=== PATIENT | male | born 1955 | race Caucasian/White ===

== ENCOUNTER → 2019-07-15 | Outpatient (CLI) | payer MEDICARE ==
--- NOTE | 2019-07-21 09:20 | REP ---
PET/CT: History: Lung nodules seen on chest CT. Multiple stable lung nodules. Recent CAT scan showed an enlarging lesion in the right middle lobe for which PET/CT was recommended. Comparisons: Comparison CT study has been retrieved from [facility] dated May 19, 2019. TECHNIQUE: 56 minutes following the intravenous injection of a 9.78 mCi dose of F-18 FDG, three-dimensional PET scintigraphy is acquired from the skull base to the proximal thighs. Triplanar noncontrast CT scanning is acquired through the same anatomic range for attenuation correction, and image registration with scan parameters optimized to minimize radiation exposure to the patient. PET scintigraphy and CT datasets were fused and displayed on a workstation with multiplanar and projection display capability. PET/CT Findings: Head and neck soft tissues are unremarkable scintigraphically. In the chest, there is no abnormal hypermetabolic pulmonary parenchymal hilar or mediastinal uptake. Maximum standard uptake value in the right middle lobe nodule surrounded by some ground-glass opacity is only 1.46. This is not hypermetabolic. The other pulmonary nodules show node discernible FDG accumulation. In the abdomen and pelvis there is normal hepatic, splenic, gastrointestinal and genitourinary FDG accumulation. No abnormal soft tissue uptake in the abdomen and pelvis. The patient's skeletal system is markedly abnormal. There are innumerable skeletal fractures. Multiple wedge compression fracture deformities are seen in the thoracic and lumbar spine. There are numerous healing rib fractures. There are bilateral pelvic fractures in various stages of healing. One or two of the rib fractures show mildly hypermetabolic uptake with maximum standard uptake value 3.40. Only one of the wedge compression deformities in the thoracic spine is hypermetabolic. Maximum standard uptake value here is 3.45. Sagittal recon images of the PET/CT and the chest CT study show a radiolucent areas in several of the collapsed thoracic vertebral bodies. The pattern is suggestive of multiple myeloma versus other cause of severe osteoporosis. Impression: The right middle lobe nodule and associated ground-glass opacity show visible but not hypermetabolic uptake. Malignancy cannot be completely excluded. Incidental finding of markedly abnormal skeletal system with innumerable fractures as discussed above. Question multiple myeloma or other cause of severe osteopenia/osteomalacia. Electronically Signed by Hermes Turcios MD 07/21/2019 07:55 P
== END ==
LOC: M PLARAD 10:52
PROVIDERS: ATTEND Neuromusculoskeletal Medicine & OMM
DX: R93.7 Abnormal findings on diagnostic imaging of other parts of musculoskeletal system (principal); R91.8 Other nonspecific abnormal finding of lung field
CPT/HCPCS: 78815; A9552

== ENCOUNTER 2023-02-26 17:25 | Emergency (ER) | payer MEDICARE ==
[~2023-02-26] VITALS: Ht 167.6 cm; Wt 115.1 kg
[2023-02-26 18:50] VITALS: BP 107/56; TEMP 96.9; O2SAT 96
== END 2023-02-26 19:05 | disposition home or self-care (01) ==
LOC: EDBD 17:25 → M ED 17:25
DX: R22.32 Localized swelling, mass and lump, left upper limb (principal); I10 Essential (primary) hypertension; I48.91 Unspecified atrial fibrillation; E11.9 Type 2 diabetes mellitus without complications; J44.9 Chronic obstructive pulmonary disease, unspecified; Z88.6 Allergy status to analgesic agent; Z88.8 Allergy status to other drugs, medicaments and biological substances

== ENCOUNTER → 2023-02-26 | Outpatient (REF) | payer MEDICAID, MEDICARE ==
[2023-02-26 10:58] LABS: MEAN CORPUSCULAR HEMOGLOBIN 28.2 pg (27.0-33.0); MEAN CORPUSCULAR HGB CONC 31.1 g/dl (32.0-36.5); MEAN CORPUSCULAR VOLUME 90.7 fl (80.0-96.0); PLATELET COUNT, AUTOMATED 243 10^3/uL (150-450); RED BLOOD COUNT 4.96 10^6/uL (4.30-6.10); WHITE BLOOD COUNT 11.5 10^3/uL (4.0-10.0)
[2023-02-26 11:24] LABS: ALBUMIN 3.3 G/DL (3.2-5.2); ALKALINE PHOSPHATASE 105 U/L (46-116); ALT/SGPT 33 U/L (7.0-40); AST/SGOT 18 U/L (<34); BILIRUBIN,TOTAL 0.6 MG/DL (0.3-1.2); BLOOD UREA NITROGEN 27 MG/DL (9-23); CALCIUM LEVEL 9.7 MG/DL (8.3-10.6); CARBON DIOXIDE LEVEL 35 MMOL/L (20-31); CHLORIDE LEVEL 93 MMOL/L (98-107); CREATININE FOR GFR 0.67 MG/DL (0.70-1.30); GLOMERULAR FILTRATION RATE > 60.0 (>49); GLUCOSE, FASTING 220 MG/DL (74-106); POTASSIUM SERUM 4.5 MMOL/L (3.5-5.1); SODIUM LEVEL 134 MMOL/L (136-145); TOTAL PROTEIN 6.7 G/DL (5.7-8.2)
== END ==
LOC: SKLAB4 10:18
PROVIDERS: ATTEND Internal Medicine
DX: R22.32 Localized swelling, mass and lump, left upper limb (principal)

== ENCOUNTER → 2023-04-04 | Outpatient (REF) | payer MEDICARE ==
[2023-04-04 19:03] LABS: BASO % 0.5 % (0.0-1.0); EOS # 0.3 10^3/uL (0.0-0.5); EOS % 3.5 % (0.0-3.0); HEMATOCRIT 45.3 % (42.0-52.0); HEMOGLOBIN 13.8 g/dl (13.5-17.5); LYMPH # 1.3 10^3/uL (1.5-5.0); LYMPH % 14.2 % (24.0-44.0); MEAN CORPUSCULAR HEMOGLOBIN 28.9 pg (27.0-33.0); MEAN CORPUSCULAR HGB CONC 30.5 g/dl (32.0-36.5); MEAN CORPUSCULAR VOLUME 94.8 fl (80.0-96.0); MONO % 11.3 % (2.0-8.0); NEUTROPHILS # 6.2 10^3/uL (1.5-8.5); NEUTROPHILS % 70.2 % (36.0-66.0); PLATELET COUNT, AUTOMATED 193 10^3/uL (150-450); RED BLOOD COUNT 4.78 10^6/uL (4.30-6.10); WHITE BLOOD COUNT 8.8 10^3/uL (4.0-10.0)
[2023-04-04 19:24] LABS: ALBUMIN 3.2 G/DL (3.2-5.2); ALKALINE PHOSPHATASE 97 U/L (46-116); ALT/SGPT 14 U/L (7.0-40); AST/SGOT < 8 U/L (<34); BILIRUBIN,TOTAL 0.4 MG/DL (0.3-1.2); BLOOD UREA NITROGEN 41 MG/DL (9-23); CALCIUM LEVEL 10.2 MG/DL (8.3-10.6); CARBON DIOXIDE LEVEL 34 MMOL/L (20-31); CHLORIDE LEVEL 96 MMOL/L (98-107); CREATININE FOR GFR 0.82 MG/DL (0.70-1.30); GLOMERULAR FILTRATION RATE > 60.0 (>49); GLUCOSE, FASTING 316 MG/DL (74-106); POTASSIUM SERUM 4.9 MMOL/L (3.5-5.1); SODIUM LEVEL 136 MMOL/L (136-145); TOTAL PROTEIN 6.6 G/DL (5.7-8.2)
== END ==
LOC: SKLAB7 16:53
PROVIDERS: ATTEND Internal Medicine
DX: R91.8 Other nonspecific abnormal finding of lung field (principal); R00.0 Tachycardia, unspecified; I21.A9 Other myocardial infarction type; R06.02 Shortness of breath

== ENCOUNTER 2023-04-15 09:05 | Inpatient (IN) | payer MEDICARE ==
[~2023-04-15] VITALS: Ht 172.7 cm; Wt 114.1 kg
[2023-04-15] VITALS (16 sets, daily range): BP systolic 69–178; BP diastolic 33–109; TEMP 97.3–97.8; O2SAT 90–99
[2023-04-15] MEDS ORDERED: methylPREDNISolone 125MG 2ML VIAL IV ONE (09:25)
[2023-04-15] MEDS ORDERED: ALBUTEROL SULFATE 2.5MG/0.5ML INH NEB SOLN INH ONE (09:25)
[2023-04-15] MEDS ORDERED: IPRATROPIUM 0.5MG/ALBUTEROL 2.5MG INH SOL UD 3ML (DUONEB) NEB ONE (09:25)
[2023-04-15] MEDS ORDERED: NS 500 ML IV ONE ×2 (09:30→09:35)
[2023-04-15] MEDS ORDERED: cefTRIAXone SOD 2 GM in D5W MINI-BAG PLUS 50 ML IV ONE (09:30)
[2023-04-15] MEDS ORDERED: AZITHROMYCIN INJ 500 MG, VIAL MATE ADAPTER 1 EACH in D5W 250 ML IV ONE (09:30)
[2023-04-15 09:31] LABS: ABG BASE EXCESS -1.8 (-2.0-2.0); ABG HCO3 29.4 MMOL/L (22.0-26.0); ABG PARTIAL PRESSURE O2 82.4 mmHg (75.0-100.0); ABG STANDARD HCO3 22.9 MMOL/L. (22.0-26.0); ABG TOTAL CO2 31.9 MMOL/L (23.0-31.0)
[2023-04-15 09:32] LABS: ABG PARTIAL PRESSURE CO2 81.6 mmHg (35.0-45.0); ABG pH (ARTERIAL) 7.174 UNITS (7.350-7.450)
[2023-04-15 09:47] LABS: BASO % 0.3 % (0.0-1.0); EOS % 0.3 % (0.0-3.0); HEMATOCRIT 53.7 % (42.0-52.0); HEMOGLOBIN 16.2 g/dl (13.5-17.5); LYMPH # 0.9 10^3/uL (1.5-5.0); LYMPH % 6.4 % (24.0-44.0); MEAN CORPUSCULAR HEMOGLOBIN 28.7 pg (27.0-33.0); MEAN CORPUSCULAR HGB CONC 30.2 g/dl (32.0-36.5); MONO # 0.8 10^3/uL (0.0-0.8); MONO % 5.6 % (2.0-8.0); NEUTROPHILS # 12.2 10^3/uL (1.5-8.5); NEUTROPHILS % 86.8 % (36.0-66.0); PLATELET COUNT, AUTOMATED 284 10^3/uL (150-450); RED BLOOD COUNT 5.65 10^6/uL (4.30-6.10)
[2023-04-15 10:00] LABS: CK-MB VALUE MASS 1.2 NG/ML (<3.6)
[2023-04-15 10:01] LABS: INR 1.61; PROTHROMBIN TIME 18.6 SECONDS (12.5-14.5)
[2023-04-15 10:02] LABS: PARTIAL THROMBOPLASTIN TIME 28.5 SECONDS (24.8-34.2)
[2023-04-15 10:03] LABS: MB/CK RELATIVE INDEX 3.63 (< OR =4)
[2023-04-15 10:04] LABS: FREE T4 0.97 NG/DL (0.89-1.76); THYROID STIMULATING HORMONE 3.127 uIU/ML (0.55-4.78)
[2023-04-15 10:09] LABS: PROCALCITONIN 0.45 ng/ml
[2023-04-15 10:13] LABS: RSV AMPLIFICATION NEGATIVE (NEGATIVE)
[2023-04-15] MEDS ORDERED: DEXTROSE 50% 50ML SYRINGE IV ONE ×2 (10:15→13:20)
[2023-04-15] MEDS ORDERED: CALCIUM GLUCONATE 1,000MG/10ML VIAL (100MG/ML) IV ONE (10:15)
[2023-04-15] MEDS ORDERED: SODIUM BICARBONATE 8.4% INJ 50ML SYRINGE IV ONE (10:15)
[2023-04-15] MEDS ORDERED: HumuLIN R (REGULAR) INSULIN (NovoLIN R) **100U/ML** PER UNIT IV ONE ×2 (10:15→13:20)
[2023-04-15 10:16] LABS: ALBUMIN 3.5 G/DL (3.2-5.2); BILIRUBIN,DIRECT 0.3 MG/DL (<0.4); BILIRUBIN,TOTAL 0.6 MG/DL (0.3-1.2); CALCIUM LEVEL 10.2 MG/DL (8.3-10.6); CREATININE FOR GFR 1.33 MG/DL (0.70-1.30); GLOMERULAR FILTRATION RATE 57.3 (>49); MAGNESIUM LEVEL 2.3 MG/DL (1.8-2.4); POTASSIUM SERUM 7.2 MMOL/L (3.5-5.1); TOTAL PROTEIN 7.4 G/DL (5.7-8.2)
[2023-04-15] MEDS ORDERED: NS IV ONE (10:35)
[2023-04-15 11:09] LABS: ABG BASE EXCESS -1.2 (-2.0-2.0); ABG HCO3 29.8 MMOL/L (22.0-26.0); ABG O2 SATURATION 94.7 % (95.0-99.0); ABG PARTIAL PRESSURE CO2 81.2 mmHg (35.0-45.0); ABG STANDARD HCO3 23.4 MMOL/L. (22.0-26.0); ABG TOTAL CO2 32.3 MMOL/L (23.0-31.0); ABG pH (ARTERIAL) 7.182 UNITS (7.350-7.450)
[2023-04-15] MEDS ORDERED: MED REC IN PROGRESS XX SCH (11:20)
[2023-04-15 11:24] LABS: CK-MB VALUE MASS 1.4 NG/ML (<3.6)
[2023-04-15 11:32] LABS: MB/CK RELATIVE INDEX 4.11 (< OR =4)
[2023-04-15] MEDS ORDERED: PATIROMER SORBITEX CALCIUM 8.4 GM POWDER PACKET (VELTASSA) PO ONE ×2 (11:50→17:00)
[2023-04-15] MEDS ORDERED: LIDO1ADH20 TOP (11:52)
[2023-04-15] MEDS ORDERED: LIDO1PAD TOP (11:52)
[2023-04-15] MEDS ORDERED: LANTINJ4 SC (11:52)
[2023-04-15] MEDS ORDERED: ALBU6.7H6 INH (11:52)
[2023-04-15] MEDS ORDERED: NITR0.4S14 SL (11:52)
[2023-04-15] MEDS ORDERED: INDA25TAB PO (11:52)
[2023-04-15] MEDS ORDERED: ADV100INH INH (11:52)
[2023-04-15] MEDS ORDERED: GLIP10TA PO (11:52)
[2023-04-15] MEDS ORDERED: LISI40TA4 PO (11:52)
[2023-04-15] MEDS ORDERED: MILKSUS7 PO (11:52)
[2023-04-15] MEDS ORDERED: MAGN400T2 PO (11:52)
[2023-04-15] MEDS ORDERED: ATOR40TA75 PO (12:42)
[2023-04-15 12:51] LABS: CREATININE FOR GFR 1.32 MG/DL (0.70-1.30); GLOMERULAR FILTRATION RATE 57.8 (>49); POTASSIUM SERUM 7.2 MMOL/L (3.5-5.1)
[2023-04-15 12:52] LABS: ABG BASE EXCESS 0.6 (-2.0-2.0); ABG HCO3 29.3 MMOL/L (22.0-26.0); ABG O2 SATURATION 89.1 % (95.0-99.0); ABG PARTIAL PRESSURE CO2 64.5 mmHg (35.0-45.0); ABG PARTIAL PRESSURE O2 59.8 mmHg (75.0-100.0); ABG STANDARD HCO3 24.8 MMOL/L. (22.0-26.0); ABG TOTAL CO2 31.3 MMOL/L (23.0-31.0); ABG pH (ARTERIAL) 7.275 UNITS (7.350-7.450)
[2023-04-15] MEDS ORDERED: GUAI100S51 PO (12:59)
[2023-04-15] MEDS ORDERED: APAP325T4 PO (12:59)
[2023-04-15] MEDS ORDERED: FLEEENE12 PR (12:59)
[2023-04-15] MEDS ORDERED: HYDR-3713 PO (12:59)
[2023-04-15] MEDS ORDERED: VITA100066 PO (12:59)
[2023-04-15] MEDS ORDERED: BISA10SU4 PR (12:59)
[2023-04-15] MEDS ORDERED: IPRA0.00 INH (12:59)
[2023-04-15] MEDS ORDERED: XARE20TA PO (12:59)
[2023-04-15] MEDS ORDERED: METF-839 PO (12:59)
[2023-04-15] MEDS ORDERED: MM S100C PO (12:59)
[2023-04-15] MEDS ORDERED: METO50TA7 PO (12:59)
[2023-04-15] MEDS ORDERED: SM N0.65 (13:03)
[2023-04-15] MEDS ORDERED: HOME MED LIST COMPLETE! XX SCH (13:15)
[2023-04-15] MEDS ORDERED: BISACODYL 10MG SUPP PR PRN (14:45)
[2023-04-15] MEDS ORDERED: SODIUM CHLORIDE NASAL 0.65% SPRAY BTL (OCEAN) PRN (14:45)
[2023-04-15] MEDS ORDERED: NITROGLYCERIN 0.4MG SUBL TABLET SL PRN (14:45)
[2023-04-15] MEDS ORDERED: IPRATROPIUM 0.5MG/ALBUTEROL 2.5MG INH SOL UD 3ML (DUONEB) INH PRN (14:45)
[2023-04-15] MEDS ORDERED: ALBUTEROL 90 MCG/ACT 8GM HFA INHALER INH PRN (14:45)
[2023-04-15 15:20] LABS: VENOUS BASE EXCESS 1.1 (-2.0-2.0); VENOUS HCO3 27.6 MMOL/L (23.0-27.0); VENOUS O2 SATURATION 99.8 % (60.0-80.0); VENOUS PARTIAL PRESSURE CO2 50.9 mmHg (38.0-50.0); VENOUS PARTIAL PRESSURE O2 242.6 mmHg (30.0-50.0); VENOUS PH 7.352 UNITS (7.330-7.430); VENOUS STANDARD HCO3 25.5 MMOL/L; VENOUS TOTAL CO2 29.2 MMOL/L (24.0-28.0)
[2023-04-15] MEDS: LIDOCAINE 5% (LIDODERM) PATCH TOP SCH (16:00)
[2023-04-15 16:06] LABS: BLOOD UREA NITROGEN 87 MG/DL (9-23); CALCIUM LEVEL 10.1 MG/DL (8.3-10.6); CARBON DIOXIDE LEVEL 30 MMOL/L (20-31); CHLORIDE LEVEL 98 MMOL/L (98-107); CREATININE FOR GFR 1.07 MG/DL (0.70-1.30); GLOMERULAR FILTRATION RATE > 60.0 (>49); GLUCOSE, FASTING 363 MG/DL (74-106); POTASSIUM SERUM 6.1 MMOL/L (3.5-5.1); SODIUM LEVEL 133 MMOL/L (136-145)
[2023-04-15] MEDS: HEPARIN SOD (PORCINE) 5000UNITS/ML 1ML VIAL/SYRINGE SC SCH ×2 (17:24→21:05)
[2023-04-15] MEDS ORDERED: LR 1,000 ML IV ONE (17:30)
[2023-04-15] MEDS ORDERED: NS 1,000 ML IV ONE (17:40)
[2023-04-15] MEDS ORDERED: SODIUM BICARBONATE 8.4% INJ 50ML SYRINGE IV STA ×2 (17:54→18:58)
[2023-04-15] MEDS: RIVAROXABAN 20MG TAB (XARELTO) PO SCH (18:00)
[2023-04-15] MEDS: NOREPINEPHRINE 4MG IN D5 250ML 4 MG in IV 1 EA IV SCH ×2 (18:45)
[2023-04-15] MEDS: ADVAIR HFA 45/21MCG INHALER INH SCH (20:06)
[2023-04-15] MEDS: ATORVASTATIN 20 MG TAB PO SCH (20:34)
[2023-04-15] MEDS: DOCUSATE SODIUM 100MG CAPSULE PO SCH (20:34)
[2023-04-15] MEDS: METOPROLOL TART 50 MG TAB PO SCH (20:34)
[2023-04-15] MEDS: INDAPAMIDE 1.25MG TABLET PO SCH (20:35)
[2023-04-15] MEDS: MAGNESIUM OXIDE 400MG TAB (MAG-OX) PO SCH (20:35)
[2023-04-15 20:59] LABS: BLOOD UREA NITROGEN 79 MG/DL (9-23); CARBON DIOXIDE LEVEL 32 MMOL/L (20-31); CHLORIDE LEVEL 101 MMOL/L (98-107); CREATININE FOR GFR 1.01 MG/DL (0.70-1.30); GLOMERULAR FILTRATION RATE > 60.0 (>49); GLUCOSE, FASTING 309 MG/DL (74-106); POTASSIUM SERUM 6.1 MMOL/L (3.5-5.1); SODIUM LEVEL 138 MMOL/L (136-145)
[2023-04-15] MEDS ORDERED: LEVEMIR (INSULIN DETEMIR) 1 UNITS/0.01ML SC SCH (21:00)
[2023-04-15] MEDS: METOPROLOL 5 MG/5 ML VIAL IV SCH (21:04)
[2023-04-15] MEDS ORDERED: FUROSEMIDE 20MG/2ML VIAL IV ONE (21:15)
[2023-04-16] VITALS (18 sets, daily range): BP systolic 84–121; BP diastolic 53–78; TEMP 97.6–98.7; O2SAT 90–99
[2023-04-16] MEDS: NOREPINEPHRINE 4MG IN D5 250ML 4 MG in IV 1 EA IV SCH ×4 (02:14→07:50)
[2023-04-16] MEDS: METOPROLOL 5 MG/5 ML VIAL IV SCH (03:00)
[2023-04-16] MEDS: HEPARIN SOD (PORCINE) 5000UNITS/ML 1ML VIAL/SYRINGE SC SCH (05:18)
[2023-04-16 06:59] LABS: BASO % 0.1 % (0.0-1.0); HEMATOCRIT 45.8 % (42.0-52.0); HEMOGLOBIN 14.3 g/dl (13.5-17.5); LYMPH % 8.9 % (24.0-44.0); MEAN CORPUSCULAR HEMOGLOBIN 28.7 pg (27.0-33.0); MEAN CORPUSCULAR HGB CONC 31.2 g/dl (32.0-36.5); MONO # 1.3 10^3/uL (0.0-0.8); MONO % 11.2 % (2.0-8.0); NEUTROPHILS % 79.4 % (36.0-66.0); PLATELET COUNT, AUTOMATED 223 10^3/uL (150-450); RED BLOOD COUNT 4.98 10^6/uL (4.30-6.10); WHITE BLOOD COUNT 11.3 10^3/uL (4.0-10.0)
[2023-04-16 07:20] LABS: BLOOD UREA NITROGEN 70 MG/DL (9-23); CALCIUM LEVEL 10.2 MG/DL (8.3-10.6); CARBON DIOXIDE LEVEL 35 MMOL/L (20-31); CHLORIDE LEVEL 101 MMOL/L (98-107); CREATININE FOR GFR 0.88 MG/DL (0.70-1.30); GLOMERULAR FILTRATION RATE > 60.0 (>49); GLUCOSE, FASTING 257 MG/DL (74-106); POTASSIUM SERUM 5.6 MMOL/L (3.5-5.1); SODIUM LEVEL 140 MMOL/L (136-145)
[2023-04-16] MEDS: ADVAIR HFA 45/21MCG INHALER INH SCH ×2 (07:25→19:19)
[2023-04-16] MEDS ORDERED: DEXTROSE 50% 50ML SYRINGE IV PRN (08:45)
[2023-04-16] MEDS ORDERED: GLUCOSE 4GM CHEW TABLET PO PRN (08:45)
[2023-04-16] MEDS ORDERED: GLUCAGON INJ 1MG VIAL SC PRN (08:45)
[2023-04-16] MEDS ORDERED: FUROSEMIDE 20MG/2ML VIAL IV ONE (09:00)
[2023-04-16] MEDS: INDAPAMIDE 1.25MG TABLET PO SCH (09:00)
[2023-04-16] MEDS: LIDOCAINE 5% (LIDODERM) PATCH TOP SCH (09:00)
[2023-04-16] MEDS: DOCUSATE SODIUM 100MG CAPSULE PO SCH ×2 (09:13→20:50)
[2023-04-16] MEDS: MAGNESIUM OXIDE 400MG TAB (MAG-OX) PO SCH ×2 (09:14→20:50)
[2023-04-16] MEDS: predniSONE 20 MG TAB PO SCH (09:14)
[2023-04-16] MEDS: AZITHROMYCIN 250MG TABLET PO SCH (09:14)
[2023-04-16] MEDS: METOPROLOL TART 50 MG TAB PO SCH (10:21)
[2023-04-16] MEDS ORDERED: PATIROMER SORBITEX CALCIUM 8.4 GM POWDER PACKET (VELTASSA) PO SCH (12:00)
[2023-04-16] MEDS: INSULIN LISPRO (NovoLOG) PER UNIT SC SCH ×3 (12:17→20:51)
[2023-04-16 14:28] LABS: BLOOD UREA NITROGEN 65 MG/DL (9-23); CALCIUM LEVEL 9.9 MG/DL (8.3-10.6); CARBON DIOXIDE LEVEL 34 MMOL/L (20-31); CHLORIDE LEVEL 97 MMOL/L (98-107); GLOMERULAR FILTRATION RATE > 60.0 (>49); GLUCOSE, FASTING 427 MG/DL (74-106); MAGNESIUM LEVEL 1.6 MG/DL (1.8-2.4); SODIUM LEVEL 136 MMOL/L (136-145)
[2023-04-16] MEDS ORDERED: INSULIN LISPRO (NovoLOG) PER UNIT SC ONE (14:45)
[2023-04-16] MEDS: MAG SULF 1GM/100ML (MAG RUN) 1 GM in IV 1 EA IV SCH ×2 (15:35→16:46)
[2023-04-16] MEDS: RIVAROXABAN 20MG TAB (XARELTO) PO SCH (18:02)
[2023-04-16] MEDS: METOPROLOL TART 25 MG TABLET PO SCH (18:07)
[2023-04-16] MEDS: LEVALBUTEROL 1.25MG 0.5ML CONCENTRATE NEB INH SCH (19:19)
[2023-04-16] MEDS: ATORVASTATIN 20 MG TAB PO SCH (20:51)
[2023-04-16] MEDS: LEVEMIR (INSULIN DETEMIR) 1 UNITS/0.01ML SC SCH (20:51)
[2023-04-17] VITALS: BP 107/64; TEMP 96.8; O2SAT 86
[2023-04-17] MEDS: METOPROLOL TART 25 MG TABLET PO SCH ×5 (00:06→23:56)
[2023-04-17] MEDS: LEVALBUTEROL 1.25MG 0.5ML CONCENTRATE NEB INH SCH ×4 (02:41→19:59)
[2023-04-17 04:00] VITALS: BP 101/63; TEMP 96.7; O2SAT 87
[2023-04-17 04:54] LABS: BASO % 0.3 % (0.0-1.0); EOS % 0.4 % (0.0-3.0); HEMATOCRIT 43.9 % (42.0-52.0); HEMOGLOBIN 13.5 g/dl (13.5-17.5); LYMPH # 1.6 10^3/uL (1.5-5.0); LYMPH % 15.8 % (24.0-44.0); MEAN CORPUSCULAR HEMOGLOBIN 28.7 pg (27.0-33.0); MEAN CORPUSCULAR HGB CONC 30.8 g/dl (32.0-36.5); MEAN CORPUSCULAR VOLUME 93.4 fl (80.0-96.0); MONO # 1.5 10^3/uL (0.0-0.8); MONO % 14.7 % (2.0-8.0); NEUTROPHILS % 68.5 % (36.0-66.0); PLATELET COUNT, AUTOMATED 186 10^3/uL (150-450); WHITE BLOOD COUNT 10.2 10^3/uL (4.0-10.0)
[2023-04-17 05:17] LABS: BLOOD UREA NITROGEN 48 MG/DL (9-23); CALCIUM LEVEL 9.6 MG/DL (8.3-10.6); CARBON DIOXIDE LEVEL 38 MMOL/L (20-31); CHLORIDE LEVEL 96 MMOL/L (98-107); CREATININE FOR GFR 0.73 MG/DL (0.70-1.30); GLOMERULAR FILTRATION RATE > 60.0 (>49); GLUCOSE, FASTING 181 MG/DL (74-106); MAGNESIUM LEVEL 1.8 MG/DL (1.8-2.4); POTASSIUM SERUM 4.7 MMOL/L (3.5-5.1); SODIUM LEVEL 135 MMOL/L (136-145)
[2023-04-17 07:14] VITALS: BP 111/67; TEMP 96.8; O2SAT 91
[2023-04-17] MEDS: TIOTROPIUM INHALER/CAPSULE (SPIRIVA) INH SCH (07:22)
[2023-04-17] MEDS: ADVAIR HFA 45/21MCG INHALER INH SCH ×2 (07:22→19:59)
[2023-04-17] MEDS: INSULIN LISPRO (NovoLOG) PER UNIT SC SCH ×4 (07:30→20:51)
[2023-04-17] MEDS: AZITHROMYCIN 250MG TABLET PO SCH (08:28)
[2023-04-17] MEDS: predniSONE 20 MG TAB PO SCH (08:28)
[2023-04-17] MEDS: DOCUSATE SODIUM 100MG CAPSULE PO SCH ×2 (08:29→20:51)
[2023-04-17] MEDS: LEVEMIR (INSULIN DETEMIR) 1 UNITS/0.01ML SC SCH ×2 (08:29→20:49)
[2023-04-17] MEDS: MAGNESIUM OXIDE 400MG TAB (MAG-OX) PO SCH ×2 (08:29→20:51)
[2023-04-17] MEDS: LIDOCAINE 5% (LIDODERM) PATCH TOP SCH ×2 (08:30→20:52)
[2023-04-17] MEDS ORDERED: PATIROMER SORBITEX CALCIUM 8.4 GM POWDER PACKET (VELTASSA) PO ONE (09:00)
[2023-04-17] MEDS: FUROSEMIDE 20 MG TAB PO SCH (11:24)
[2023-04-17] MEDS ORDERED: HEPARIN SOD (PORCINE) 5000UNITS/ML 1ML VIAL/SYRINGE IV PRN (13:25)
[2023-04-17] MEDS ORDERED: MIRALAX *UNIT DOSE* 17GM PACKET PO PRN (14:05)
[2023-04-17] MEDS: HEPARIN DRIP 25,000 UNITS in IV 1 EA IV SCH (18:00)
[2023-04-17 20:00] VITALS: BP 123/62; TEMP 98.1; O2SAT 94
[2023-04-17 20:03] VITALS: O2SAT 96
[2023-04-17] MEDS: ATORVASTATIN 20 MG TAB PO SCH (20:51)
[2023-04-17 23:49] VITALS: BP 133/70; TEMP 97.9; O2SAT 91
[2023-04-18] VITALS (17 sets, daily range): BP systolic 102–145; BP diastolic 52–76; TEMP 96.8–97.7; O2SAT 85–97
[2023-04-18] MEDS: LEVALBUTEROL 1.25MG 0.5ML CONCENTRATE NEB INH SCH ×4 (01:24→19:03)
[2023-04-18] MEDS: METOPROLOL TART 25 MG TABLET PO SCH ×4 (05:46→23:03)
[2023-04-18 06:08] LABS: BASO % 0.3 % (0.0-1.0); EOS # 0.1 10^3/uL (0.0-0.5); EOS % 0.9 % (0.0-3.0); HEMATOCRIT 45.6 % (42.0-52.0); LYMPH # 1.4 10^3/uL (1.5-5.0); LYMPH % 18.2 % (24.0-44.0); MEAN CORPUSCULAR HEMOGLOBIN 28.5 pg (27.0-33.0); MEAN CORPUSCULAR HGB CONC 30.7 g/dl (32.0-36.5); MEAN CORPUSCULAR VOLUME 92.7 fl (80.0-96.0); NEUTROPHILS # 5.3 10^3/uL (1.5-8.5); NEUTROPHILS % 67.3 % (36.0-66.0); PLATELET COUNT, AUTOMATED 177 10^3/uL (150-450); RED BLOOD COUNT 4.92 10^6/uL (4.30-6.10); WHITE BLOOD COUNT 7.8 10^3/uL (4.0-10.0)
[2023-04-18 06:46] LABS: BLOOD UREA NITROGEN 30 MG/DL (9-23); CALCIUM LEVEL 10.3 MG/DL (8.3-10.6); CARBON DIOXIDE LEVEL 39 MMOL/L (20-31); CHLORIDE LEVEL 91 MMOL/L (98-107); CREATININE FOR GFR 0.62 MG/DL (0.70-1.30); GLOMERULAR FILTRATION RATE > 60.0 (>49); GLUCOSE, FASTING 188 MG/DL (74-106); MAGNESIUM LEVEL 1.4 MG/DL (1.8-2.4); POTASSIUM SERUM 4.2 MMOL/L (3.5-5.1); SODIUM LEVEL 135 MMOL/L (136-145)
[2023-04-18] MEDS: INSULIN LISPRO (NovoLOG) PER UNIT SC SCH ×4 (07:30→21:55)
[2023-04-18] MEDS: MAG SULF 1GM/100ML (MAG RUN) 1 GM in IV 1 EA IV SCH ×3 (07:32→10:08)
[2023-04-18] MEDS: TIOTROPIUM INHALER/CAPSULE (SPIRIVA) INH SCH ×2 (08:00→08:52)
[2023-04-18] MEDS: ADVAIR HFA 45/21MCG INHALER INH SCH ×2 (08:52→19:03)
[2023-04-18] MEDS: LEVEMIR (INSULIN DETEMIR) 1 UNITS/0.01ML SC SCH (09:14)
[2023-04-18] MEDS: FUROSEMIDE 20 MG TAB PO SCH (09:15)
[2023-04-18] MEDS: predniSONE 20 MG TAB PO SCH (09:15)
[2023-04-18] MEDS: MAGNESIUM OXIDE 400MG TAB (MAG-OX) PO SCH ×2 (09:15→21:54)
[2023-04-18] MEDS: AZITHROMYCIN 250MG TABLET PO SCH (09:15)
[2023-04-18] MEDS: DOCUSATE SODIUM 100MG CAPSULE PO SCH ×2 (09:15→21:54)
[2023-04-18] MEDS: HEPARIN DRIP 25,000 UNITS in IV 1 EA IV SCH (10:12)
[2023-04-18] MEDS: LIDOCAINE 5% (LIDODERM) PATCH TOP SCH (10:30)
[2023-04-18] MEDS ORDERED: NS 1,000 ML IV SCH (20:40)
[2023-04-18] MEDS ORDERED: LEVEMIR (INSULIN DETEMIR) 1 UNITS/0.01ML SC ONE (21:10)
[2023-04-18] MEDS: ATORVASTATIN 20 MG TAB PO SCH (21:54)
[2023-04-19] VITALS (18 sets, daily range): BP systolic 104–131; BP diastolic 60–74; TEMP 96.8–97.5; O2SAT 88–98
[2023-04-19] MEDS: HEPARIN DRIP 25,000 UNITS in IV 1 EA IV SCH (01:30)
[2023-04-19] MEDS: LEVALBUTEROL 1.25MG 0.5ML CONCENTRATE NEB INH SCH ×4 (02:00→19:57)
[2023-04-19] MEDS: METOPROLOL TART 25 MG TABLET PO SCH ×3 (06:32→20:29)
[2023-04-19 06:39] LABS: VENOUS PH 7.375 UNITS (7.330-7.430)
[2023-04-19 06:40] LABS: VENOUS BASE EXCESS 12.2 (-2.0-2.0); VENOUS O2 SATURATION 98.3 % (60.0-80.0); VENOUS PARTIAL PRESSURE CO2 71.7 mmHg (38.0-50.0); VENOUS PARTIAL PRESSURE O2 121.3 mmHg (30.0-50.0); VENOUS TOTAL CO2 43.2 MMOL/L (24.0-28.0)
[2023-04-19 06:45] LABS: BASO % 0.2 % (0.0-1.0); EOS # 0.1 10^3/uL (0.0-0.5); EOS % 1.4 % (0.0-3.0); HEMATOCRIT 46.7 % (42.0-52.0); HEMOGLOBIN 14.3 g/dl (13.5-17.5); LYMPH # 1.4 10^3/uL (1.5-5.0); LYMPH % 16.9 % (24.0-44.0); MEAN CORPUSCULAR HEMOGLOBIN 28.5 pg (27.0-33.0); MEAN CORPUSCULAR HGB CONC 30.6 g/dl (32.0-36.5); MEAN CORPUSCULAR VOLUME 93.2 fl (80.0-96.0); MONO % 12.4 % (2.0-8.0); NEUTROPHILS # 5.6 10^3/uL (1.5-8.5); NEUTROPHILS % 68.9 % (36.0-66.0); PLATELET COUNT, AUTOMATED 173 10^3/uL (150-450); RED BLOOD COUNT 5.01 10^6/uL (4.30-6.10); WHITE BLOOD COUNT 8.1 10^3/uL (4.0-10.0)
[2023-04-19 06:56] LABS: INR 1.08; PROTHROMBIN TIME 13.7 SECONDS (12.5-14.5)
[2023-04-19 06:58] LABS: PARTIAL THROMBOPLASTIN TIME 92.3 SECONDS (24.8-34.2)
[2023-04-19] MEDS: INSULIN LISPRO (NovoLOG) PER UNIT SC SCH ×4 (07:30→21:00)
[2023-04-19 07:34] LABS: BLOOD UREA NITROGEN 24 MG/DL (9-23); CALCIUM LEVEL 9.8 MG/DL (8.3-10.6); CARBON DIOXIDE LEVEL > 40.0 MMOL/L (20-31); CHLORIDE LEVEL 92 MMOL/L (98-107); CREATININE FOR GFR 0.63 MG/DL (0.70-1.30); GLOMERULAR FILTRATION RATE > 60.0 (>49); GLUCOSE, FASTING 167 MG/DL (74-106); MAGNESIUM LEVEL 1.6 MG/DL (1.8-2.4); POTASSIUM SERUM 4.2 MMOL/L (3.5-5.1); SODIUM LEVEL 135 MMOL/L (136-145)
[2023-04-19] MEDS: TIOTROPIUM INHALER/CAPSULE (SPIRIVA) INH SCH (07:58)
[2023-04-19] MEDS: ADVAIR HFA 45/21MCG INHALER INH SCH ×2 (07:59→19:57)
[2023-04-19] MEDS ORDERED: MAG SULF 1GM/100ML (MAG RUN) 1 GM in IV 1 EA IV SCH (08:00)
[2023-04-19] MEDS: predniSONE 20 MG TAB PO SCH (08:11)
[2023-04-19] MEDS: FUROSEMIDE 20 MG TAB PO SCH (08:11)
[2023-04-19] MEDS: AZITHROMYCIN 250MG TABLET PO SCH (08:11)
[2023-04-19] MEDS: DOCUSATE SODIUM 100MG CAPSULE PO SCH ×2 (08:11→22:08)
[2023-04-19] MEDS: MAGNESIUM OXIDE 400MG TAB (MAG-OX) PO SCH ×2 (08:12→22:08)
[2023-04-19] MEDS: LIDOCAINE 5% (LIDODERM) PATCH TOP SCH (08:12)
[2023-04-19] MEDS: LEVEMIR (INSULIN DETEMIR) 1 UNITS/0.01ML SC SCH ×2 (08:13→22:09)
[2023-04-19] MEDS: MAG SULF 1GM/100ML (MAG RUN) 1 GM in IV 1 EA IV SCH ×2 (08:13→09:57)
[2023-04-19] MEDS: MIRALAX *UNIT DOSE* 17GM PACKET PO SCH ×2 (11:10→22:09)
[2023-04-19] MEDS: MOM 30ML SUSPENSION UDC PO SCH (12:35)
[2023-04-19] MEDS ORDERED: LIDOCAINE 1% SDV 5ML VIAL PN ONE (15:10)
[2023-04-19] MEDS ORDERED: fentaNYL 100 MCG/2 ML INJECTION IV PRN ×2 (15:10→17:55)
[2023-04-19] MEDS ORDERED: ROPIvacaine 0.5% 30ML VIAL PN ONE (15:10)
[2023-04-19] MEDS ORDERED: ceFAZolin 1GM VIAL As Ordered ONE (15:14)
[2023-04-19] MEDS ORDERED: propofoL 200 MG/20 ML VIAL As Ordered ONE (15:14)
[2023-04-19] MEDS ORDERED: ACETAMINOPHEN 1000MG 100ML IV BAG As Ordered ONE (15:14)
[2023-04-19] MEDS ORDERED: dexmedeTOMIDine (4MCG/ML)200MCG/50ML BTL (PRECEDEX) As Ordered ONE (15:14)
[2023-04-19] MEDS ORDERED: LIDOCAINE 2% 100MG/5ML SDV (FOR ANES.) As Ordered ONE (15:14)
[2023-04-19] MEDS ORDERED: KETAMINE HCL 200MG/20ML VIAL As Ordered ONE (15:22)
[2023-04-19] MEDS ORDERED: GLYCOPYRROLATE INJ 0.2 MG/ML 2 ML VIAL As Ordered ONE (15:24)
[2023-04-19] MEDS ORDERED: MIDAZOLAM INJ 2MG/2ML VIAL As Ordered ONE (15:25)
[2023-04-19] MEDS ORDERED: INSULIN LISPRO (NovoLOG) PER UNIT SC PRN ×4 (16:00→18:26)
[2023-04-19] MEDS ORDERED: INSULIN LISPRO (NovoLOG) PER UNIT SQ ONE (16:10)
[2023-04-19] MEDS ORDERED: ceFAZolin 2 GM/D5W 50 ML IV BAG As Ordered ONE (16:47)
[2023-04-19] MEDS ORDERED: ESMOLOL INJ 100MG/10ML VIAL As Ordered ONE ×2 (16:52→18:27)
[2023-04-19] MEDS ORDERED: oxyCODONE 5MG TAB PO PRN (17:55)
[2023-04-19] MEDS ORDERED: HYDROMORPHONE HCL 0.5 MG/ 0.5 ML SYRINGE IV PRN (17:55)
[2023-04-19] MEDS ORDERED: ONDANSETRON 4MG 2ML VIAL IV PRN (17:55)
[2023-04-19] MEDS ORDERED: LR 1,000 ML IV SCH (17:55)
[2023-04-19] MEDS: METOPROLOL 5 MG/5 ML VIAL IV PRN ×5 (18:44→19:05)
[2023-04-19] MEDS: ATORVASTATIN 20 MG TAB PO SCH (22:08)
[2023-04-20] VITALS (29 sets, daily range): BP systolic 96–151; BP diastolic 54–86; TEMP 96.7–97.7; O2SAT 84–96
[2023-04-20] MEDS ORDERED: HEPARIN SOD (PORCINE) 5000UNITS/ML 1ML VIAL/SYRINGE IV PRN (00:35)
[2023-04-20] MEDS ORDERED: HEPARIN DRIP 25,000 UNITS in IV 1 EA IV SCH (00:35)
[2023-04-20] MEDS: METOPROLOL TART 25 MG TABLET PO SCH ×4 (00:59→17:59)
[2023-04-20] MEDS: ceFAZolin SOD 2 GM in IV 1 EA IV SCH ×3 (01:47→17:59)
[2023-04-20] MEDS: LEVALBUTEROL 1.25MG 0.5ML CONCENTRATE NEB INH SCH ×4 (02:00→20:09)
[2023-04-20] MEDS: ACETAMINOPHEN TAB 650MG DOSE (2X325MG) PO PRN ×2 (03:43→13:00)
[2023-04-20] MEDS: ADVAIR HFA 45/21MCG INHALER INH SCH ×2 (07:50→20:09)
[2023-04-20] MEDS: TIOTROPIUM INHALER/CAPSULE (SPIRIVA) INH SCH (07:50)
[2023-04-20 08:08] LABS: BASO % 0.1 % (0.0-1.0); EOS % 0.1 % (0.0-3.0); HEMATOCRIT 50.8 % (42.0-52.0); HEMOGLOBIN 15.1 g/dl (13.5-17.5); LYMPH # 0.8 10^3/uL (1.5-5.0); LYMPH % 5.9 % (24.0-44.0); MEAN CORPUSCULAR HEMOGLOBIN 27.8 pg (27.0-33.0); MEAN CORPUSCULAR HGB CONC 29.7 g/dl (32.0-36.5); MEAN CORPUSCULAR VOLUME 93.6 fl (80.0-96.0); MONO # 1.3 10^3/uL (0.0-0.8); MONO % 9.9 % (2.0-8.0); NEUTROPHILS # 11.2 10^3/uL (1.5-8.5); NEUTROPHILS % 83.6 % (36.0-66.0); PLATELET COUNT, AUTOMATED 216 10^3/uL (150-450); RED BLOOD COUNT 5.43 10^6/uL (4.30-6.10); WHITE BLOOD COUNT 13.4 10^3/uL (4.0-10.0)
[2023-04-20 08:21] LABS: INR 1.01
[2023-04-20 08:22] LABS: PARTIAL THROMBOPLASTIN TIME 36.5 SECONDS (24.8-34.2)
[2023-04-20 08:31] LABS: BLOOD UREA NITROGEN 27 MG/DL (9-23); CALCIUM LEVEL 9.9 MG/DL (8.3-10.6); CARBON DIOXIDE LEVEL > 40.0 MMOL/L (20-31); CHLORIDE LEVEL 86 MMOL/L (98-107); CREATININE FOR GFR 0.65 MG/DL (0.70-1.30); GLOMERULAR FILTRATION RATE > 60.0 (>49); GLUCOSE, FASTING 259 MG/DL (74-106); MAGNESIUM LEVEL 2.2 MG/DL (1.8-2.4); POTASSIUM SERUM 4.7 MMOL/L (3.5-5.1); SODIUM LEVEL 130 MMOL/L (136-145)
[2023-04-20] MEDS: MOM 30ML SUSPENSION UDC PO SCH (09:13)
[2023-04-20] MEDS: INSULIN LISPRO (NovoLOG) PER UNIT SC SCH ×4 (09:14→20:39)
[2023-04-20] MEDS: DOCUSATE SODIUM 100MG CAPSULE PO SCH ×2 (09:14→20:38)
[2023-04-20] MEDS: LEVEMIR (INSULIN DETEMIR) 1 UNITS/0.01ML SC SCH ×2 (09:14→20:39)
[2023-04-20] MEDS: FUROSEMIDE 20 MG TAB PO SCH (09:15)
[2023-04-20] MEDS: MAGNESIUM OXIDE 400MG TAB (MAG-OX) PO SCH ×2 (09:15→20:37)
[2023-04-20] MEDS: predniSONE 20 MG TAB PO SCH (09:15)
[2023-04-20] MEDS: LIDOCAINE 5% (LIDODERM) PATCH TOP SCH (09:16)
[2023-04-20] MEDS: MIRALAX *UNIT DOSE* 17GM PACKET PO SCH ×2 (09:17→20:38)
[2023-04-20] MEDS ORDERED: LEVEMIR (INSULIN DETEMIR) 1 UNITS/0.01ML SC ONE (13:00)
[2023-04-20] MEDS ORDERED: INSULIN LISPRO (NovoLOG) PER UNIT SC ONE (16:30)
[2023-04-20] MEDS: RIVAROXABAN 20MG TAB (XARELTO) PO SCH (17:59)
[2023-04-20] MEDS: ATORVASTATIN 20 MG TAB PO SCH (20:38)
[2023-04-20] MEDS: NORCO, ANEXSIA 5/325MG TABLET (HYDROcodone/ACETAMINOPHEN) PO PRN (20:38)
[2023-04-20] MEDS ORDERED: LEVEMIR (INSULIN DETEMIR) 1 UNITS/0.01ML SC SCH (21:00)
[2023-04-21] VITALS (33 sets, daily range): BP systolic 104–120; BP diastolic 56–72; TEMP 96.2–98; O2SAT 76–97
[2023-04-21] MEDS: METOPROLOL TART 25 MG TABLET PO SCH ×5 (00:15→23:06)
[2023-04-21] MEDS: LEVALBUTEROL 1.25MG 0.5ML CONCENTRATE NEB INH SCH ×4 (01:37→19:53)
[2023-04-21] MEDS: NORCO, ANEXSIA 5/325MG TABLET (HYDROcodone/ACETAMINOPHEN) PO PRN ×3 (05:49→21:07)
[2023-04-21 06:21] LABS: BASO % 0.1 % (0.0-1.0); EOS # 0.1 10^3/uL (0.0-0.5); EOS % 0.5 % (0.0-3.0); HEMATOCRIT 50.8 % (42.0-52.0); HEMOGLOBIN 15.5 g/dl (13.5-17.5); LYMPH # 1.4 10^3/uL (1.5-5.0); LYMPH % 10.9 % (24.0-44.0); MEAN CORPUSCULAR HEMOGLOBIN 28.4 pg (27.0-33.0); MEAN CORPUSCULAR HGB CONC 30.5 g/dl (32.0-36.5); MEAN CORPUSCULAR VOLUME 93.2 fl (80.0-96.0); MONO % 12.1 % (2.0-8.0); PLATELET COUNT, AUTOMATED 196 10^3/uL (150-450); RED BLOOD COUNT 5.45 10^6/uL (4.30-6.10); WHITE BLOOD COUNT 13.2 10^3/uL (4.0-10.0)
[2023-04-21 06:24] LABS: MONO # 1.6 10^3/uL (0.0-0.8)
[2023-04-21 06:50] LABS: BLOOD UREA NITROGEN 25 MG/DL (9-23); CALCIUM LEVEL 10.1 MG/DL (8.3-10.6); CARBON DIOXIDE LEVEL > 40.0 MMOL/L (20-31); CHLORIDE LEVEL 90 MMOL/L (98-107); CREATININE FOR GFR 0.63 MG/DL (0.70-1.30); GLOMERULAR FILTRATION RATE > 60.0 (>49); GLUCOSE, FASTING 164 MG/DL (74-106); MAGNESIUM LEVEL 1.9 MG/DL (1.8-2.4); POTASSIUM SERUM 4.6 MMOL/L (3.5-5.1); SODIUM LEVEL 135 MMOL/L (136-145)
[2023-04-21] MEDS: INSULIN LISPRO (NovoLOG) PER UNIT SC SCH ×4 (07:40→21:09)
[2023-04-21] MEDS: TIOTROPIUM INHALER/CAPSULE (SPIRIVA) INH SCH (07:55)
[2023-04-21] MEDS: ADVAIR HFA 45/21MCG INHALER INH SCH (07:55)
[2023-04-21] MEDS ORDERED: SODIUM CHLORIDE HYPERTONIC 3% 4ML NEB SOL INH SCH (08:00)
[2023-04-21 08:38] LABS: ABG BASE EXCESS 10.3 (-2.0-2.0); ABG HCO3 39.1 MMOL/L (22.0-26.0); ABG O2 SATURATION 90.3 % (95.0-99.0); ABG PARTIAL PRESSURE CO2 71.5 mmHg (35.0-45.0); ABG PARTIAL PRESSURE O2 56.2 mmHg (75.0-100.0); ABG STANDARD HCO3 33.9 MMOL/L. (22.0-26.0); ABG TOTAL CO2 41.3 MMOL/L (23.0-31.0); ABG pH (ARTERIAL) 7.356 UNITS (7.350-7.450)
[2023-04-21] MEDS: DOCUSATE SODIUM 100MG CAPSULE PO SCH ×2 (09:18→21:07)
[2023-04-21] MEDS: MAGNESIUM OXIDE 400MG TAB (MAG-OX) PO SCH ×2 (09:18→21:08)
[2023-04-21] MEDS: LEVEMIR (INSULIN DETEMIR) 1 UNITS/0.01ML SC SCH ×2 (09:18→21:09)
[2023-04-21] MEDS: MIRALAX *UNIT DOSE* 17GM PACKET PO SCH ×2 (09:18→21:08)
[2023-04-21] MEDS: LIDOCAINE 5% (LIDODERM) PATCH TOP SCH (09:19)
[2023-04-21] MEDS: SODIUM CHLORIDE NASAL 0.65% SPRAY BTL (OCEAN) PRN (09:29)
[2023-04-21] MEDS ORDERED: FUROSEMIDE 20MG/2ML VIAL IV ONE ×2 (11:30→12:00)
[2023-04-21] MEDS: FORMOTEROL FUMARATE 20 MCG/2 ML INHALATION SOLUTION (PERFOROMIST) INH SCH ×2 (12:00→19:53)
[2023-04-21] MEDS: BUDESONIDE 0.5 MG/2 ML INHALATION SUSPENSION INH SCH ×2 (12:00→19:53)
[2023-04-21] MEDS: RIVAROXABAN 20MG TAB (XARELTO) PO SCH (17:47)
[2023-04-21] MEDS: guaiFENesin SYRUP 200MG 10ML UDC PO PRN (21:07)
[2023-04-21] MEDS: ATORVASTATIN 20 MG TAB PO SCH (21:08)
[2023-04-22] VITALS (31 sets, daily range): BP systolic 110–138; BP diastolic 66–76; TEMP 96.5–97; O2SAT 85–96
[2023-04-22] MEDS ORDERED: ACETAMINOPHEN *IV* 1,000 MG in IV 1 EA IV ONE (00:40)
[2023-04-22] MEDS: LEVALBUTEROL 1.25MG 0.5ML CONCENTRATE NEB INH SCH ×4 (01:56→20:16)
[2023-04-22] MEDS: NORCO, ANEXSIA 5/325MG TABLET (HYDROcodone/ACETAMINOPHEN) PO PRN ×3 (04:09→20:58)
[2023-04-22] MEDS: guaiFENesin SYRUP 200MG 10ML UDC PO PRN (04:09)
[2023-04-22] MEDS: METOPROLOL TART 25 MG TABLET PO SCH (05:21)
[2023-04-22 05:44] LABS: BASO % 0.2 % (0.0-1.0); EOS # 0.2 10^3/uL (0.0-0.5); EOS % 1.9 % (0.0-3.0); HEMATOCRIT 46.8 % (42.0-52.0); HEMOGLOBIN 14.4 g/dl (13.5-17.5); LYMPH # 1.5 10^3/uL (1.5-5.0); LYMPH % 14.6 % (24.0-44.0); MEAN CORPUSCULAR HEMOGLOBIN 28.5 pg (27.0-33.0); MEAN CORPUSCULAR HGB CONC 30.8 g/dl (32.0-36.5); MEAN CORPUSCULAR VOLUME 92.7 fl (80.0-96.0); MONO # 1.3 10^3/uL (0.0-0.8); MONO % 12.4 % (2.0-8.0); NEUTROPHILS # 7.1 10^3/uL (1.5-8.5); NEUTROPHILS % 70.5 % (36.0-66.0); PLATELET COUNT, AUTOMATED 189 10^3/uL (150-450); RED BLOOD COUNT 5.05 10^6/uL (4.30-6.10); WHITE BLOOD COUNT 10.1 10^3/uL (4.0-10.0)
[2023-04-22 06:05] LABS: BLOOD UREA NITROGEN 26 MG/DL (9-23); CALCIUM LEVEL 9.8 MG/DL (8.3-10.6); CARBON DIOXIDE LEVEL > 40.0 MMOL/L (20-31); CHLORIDE LEVEL 92 MMOL/L (98-107); CREATININE FOR GFR 0.58 MG/DL (0.70-1.30); GLOMERULAR FILTRATION RATE > 60.0 (>49); GLUCOSE, FASTING 162 MG/DL (74-106); MAGNESIUM LEVEL 1.8 MG/DL (1.8-2.4); POTASSIUM SERUM 4.6 MMOL/L (3.5-5.1); SODIUM LEVEL 136 MMOL/L (136-145)
[2023-04-22] MEDS: TIOTROPIUM INHALER/CAPSULE (SPIRIVA) INH SCH (08:10)
[2023-04-22] MEDS: BUDESONIDE 0.5 MG/2 ML INHALATION SUSPENSION INH SCH ×2 (08:10→20:15)
[2023-04-22] MEDS: FORMOTEROL FUMARATE 20 MCG/2 ML INHALATION SOLUTION (PERFOROMIST) INH SCH ×2 (08:10→20:15)
[2023-04-22] MEDS: MIRALAX *UNIT DOSE* 17GM PACKET PO SCH ×2 (08:41→20:59)
[2023-04-22] MEDS: INSULIN LISPRO (NovoLOG) PER UNIT SC SCH ×4 (08:41→21:00)
[2023-04-22] MEDS: DOCUSATE SODIUM 100MG CAPSULE PO SCH ×2 (08:42→20:57)
[2023-04-22] MEDS: LEVEMIR (INSULIN DETEMIR) 1 UNITS/0.01ML SC SCH ×2 (08:42→21:00)
[2023-04-22] MEDS: MAGNESIUM OXIDE 400MG TAB (MAG-OX) PO SCH ×2 (08:42→20:57)
[2023-04-22] MEDS: SODIUM CHLORIDE NASAL 0.65% SPRAY BTL (OCEAN) PRN (08:43)
[2023-04-22] MEDS: LIDOCAINE 5% (LIDODERM) PATCH TOP SCH (09:00)
[2023-04-22] MEDS: RIVAROXABAN 20MG TAB (XARELTO) PO SCH (18:05)
[2023-04-22] MEDS: ATORVASTATIN 20 MG TAB PO SCH (20:57)
[2023-04-22] MEDS: METOPROLOL TART 50 MG TAB PO SCH (20:59)
[2023-04-23] VITALS (20 sets, daily range): BP systolic 106–127; BP diastolic 61–71; PULSE 116; TEMP 96.5–97.4; O2SAT 87–98
[2023-04-23] MEDS: LEVALBUTEROL 1.25MG 0.5ML CONCENTRATE NEB INH SCH ×4 (01:27→21:10)
[2023-04-23] MEDS: NORCO, ANEXSIA 5/325MG TABLET (HYDROcodone/ACETAMINOPHEN) PO PRN ×3 (03:24→22:40)
[2023-04-23 05:15] LABS: BASO % 0.3 % (0.0-1.0); EOS # 0.3 10^3/uL (0.0-0.5); EOS % 2.8 % (0.0-3.0); HEMATOCRIT 45.7 % (42.0-52.0); HEMOGLOBIN 14.2 g/dl (13.5-17.5); LYMPH # 1.4 10^3/uL (1.5-5.0); LYMPH % 15.4 % (24.0-44.0); MEAN CORPUSCULAR HEMOGLOBIN 28.6 pg (27.0-33.0); MEAN CORPUSCULAR HGB CONC 31.1 g/dl (32.0-36.5); MEAN CORPUSCULAR VOLUME 92.1 fl (80.0-96.0); MONO % 10.8 % (2.0-8.0); NEUTROPHILS # 6.5 10^3/uL (1.5-8.5); NEUTROPHILS % 70.4 % (36.0-66.0); PLATELET COUNT, AUTOMATED 202 10^3/uL (150-450); RED BLOOD COUNT 4.96 10^6/uL (4.30-6.10); WHITE BLOOD COUNT 9.2 10^3/uL (4.0-10.0)
[2023-04-23 05:40] LABS: BLOOD UREA NITROGEN 22 MG/DL (9-23); CALCIUM LEVEL 9.6 MG/DL (8.3-10.6); CARBON DIOXIDE LEVEL > 40.0 MMOL/L (20-31); CHLORIDE LEVEL 92 MMOL/L (98-107); CREATININE FOR GFR 0.48 MG/DL (0.70-1.30); GLOMERULAR FILTRATION RATE > 60.0 (>49); GLUCOSE, FASTING 111 MG/DL (74-106); MAGNESIUM LEVEL 1.8 MG/DL (1.8-2.4); POTASSIUM SERUM 4.3 MMOL/L (3.5-5.1); SODIUM LEVEL 133 MMOL/L (136-145)
[2023-04-23] MEDS: FORMOTEROL FUMARATE 20 MCG/2 ML INHALATION SOLUTION (PERFOROMIST) INH SCH ×2 (07:51→21:10)
[2023-04-23] MEDS: BUDESONIDE 0.5 MG/2 ML INHALATION SUSPENSION INH SCH ×2 (07:51→21:10)
[2023-04-23] MEDS: TIOTROPIUM INHALER/CAPSULE (SPIRIVA) INH SCH (07:51)
[2023-04-23] MEDS: INSULIN LISPRO (NovoLOG) PER UNIT SC SCH ×4 (09:27→21:23)
[2023-04-23] MEDS: DOCUSATE SODIUM 100MG CAPSULE PO SCH ×2 (09:33→21:22)
[2023-04-23] MEDS: MAGNESIUM OXIDE 400MG TAB (MAG-OX) PO SCH ×2 (09:33→21:22)
[2023-04-23] MEDS: MIRALAX *UNIT DOSE* 17GM PACKET PO SCH ×2 (09:34→21:22)
[2023-04-23] MEDS: METOPROLOL TART 50 MG TAB PO SCH ×2 (09:34→21:22)
[2023-04-23] MEDS: LIDOCAINE 5% (LIDODERM) PATCH TOP SCH (09:35)
[2023-04-23] MEDS: LEVEMIR (INSULIN DETEMIR) 1 UNITS/0.01ML SC SCH ×2 (09:35→21:24)
[2023-04-23] MEDS ORDERED: FUROSEMIDE 20MG/2ML VIAL IV ONE (10:00)
[2023-04-23] MEDS ORDERED: ISOVUE-370 76% 100ML VIAL As Ordered ONE (10:17)
[2023-04-23] MEDS: RIVAROXABAN 20MG TAB (XARELTO) PO SCH (18:02)
[2023-04-23] MEDS: ATORVASTATIN 20 MG TAB PO SCH (21:22)
[2023-04-24] VITALS (30 sets, daily range): BP systolic 106–125; BP diastolic 53–84; PULSE 101; TEMP 96.6–97.1; O2SAT 89–99
[2023-04-24] MEDS ORDERED: ANALGESIC BALM CRM 3OZ TOP PRN (00:10)
[2023-04-24] MEDS: LEVALBUTEROL 1.25MG 0.5ML CONCENTRATE NEB INH SCH ×4 (02:01→19:32)
[2023-04-24] MEDS: NORCO, ANEXSIA 5/325MG TABLET (HYDROcodone/ACETAMINOPHEN) PO PRN ×4 (03:09→23:27)
[2023-04-24 05:45] LABS: HEMATOCRIT 45.4 % (42.0-52.0); HEMOGLOBIN 14.3 g/dl (13.5-17.5); MEAN CORPUSCULAR HEMOGLOBIN 28.7 pg (27.0-33.0); MEAN CORPUSCULAR HGB CONC 31.5 g/dl (32.0-36.5); PLATELET COUNT, AUTOMATED 210 10^3/uL (150-450); RED BLOOD COUNT 4.99 10^6/uL (4.30-6.10)
[2023-04-24 05:56] LABS: BLOOD UREA NITROGEN 25 MG/DL (9-23); CALCIUM LEVEL 9.6 MG/DL (8.3-10.6); CARBON DIOXIDE LEVEL 34 MMOL/L (20-31); CHLORIDE LEVEL 95 MMOL/L (98-107); CREATININE FOR GFR 0.49 MG/DL (0.70-1.30); GLOMERULAR FILTRATION RATE > 60.0 (>49); GLUCOSE, FASTING 257 MG/DL (74-106); POTASSIUM SERUM 4.2 MMOL/L (3.5-5.1); SODIUM LEVEL 134 MMOL/L (136-145)
[2023-04-24 07:35] LABS: BASO % 0.3 % (0.0-1.0); EOS # 0.3 10^3/uL (0.0-0.5); EOS % 2.5 % (0.0-3.0); LYMPH % 8.8 % (24.0-44.0); MONO # 1.2 10^3/uL (0.0-0.8); MONO % 10.8 % (2.0-8.0); NEUTROPHILS # 8.6 10^3/uL (1.5-8.5); NEUTROPHILS % 77.2 % (36.0-66.0)
[2023-04-24] MEDS: TIOTROPIUM INHALER/CAPSULE (SPIRIVA) INH SCH (08:05)
[2023-04-24] MEDS: BUDESONIDE 0.5 MG/2 ML INHALATION SUSPENSION INH SCH ×2 (08:05→19:31)
[2023-04-24] MEDS: FORMOTEROL FUMARATE 20 MCG/2 ML INHALATION SOLUTION (PERFOROMIST) INH SCH ×2 (08:05→19:31)
[2023-04-24] MEDS: INSULIN LISPRO (NovoLOG) PER UNIT SC SCH ×6 (08:21→20:52)
[2023-04-24] MEDS: MIRALAX *UNIT DOSE* 17GM PACKET PO SCH ×2 (08:22→20:35)
[2023-04-24] MEDS: LEVEMIR (INSULIN DETEMIR) 1 UNITS/0.01ML SC SCH ×2 (08:22→21:00)
[2023-04-24] MEDS: MAGNESIUM OXIDE 400MG TAB (MAG-OX) PO SCH ×2 (08:22→20:36)
[2023-04-24] MEDS: DOCUSATE SODIUM 100MG CAPSULE PO SCH ×2 (08:22→20:36)
[2023-04-24] MEDS: LIDOCAINE 5% (LIDODERM) PATCH TOP SCH (08:23)
[2023-04-24] MEDS: METOPROLOL TART 50 MG TAB PO SCH (08:26)
[2023-04-24 09:48] LABS: HEMOGLOBIN A1c 9.7 % (4.0-6.0)
[2023-04-24] MEDS ORDERED: FUROSEMIDE 20MG/2ML VIAL IV ONE (10:00)
[2023-04-24] MEDS: RIVAROXABAN 20MG TAB (XARELTO) PO SCH (17:25)
[2023-04-24] MEDS: ATORVASTATIN 20 MG TAB PO SCH (20:36)
[2023-04-24] MEDS ORDERED: LIDOCAINE 5% (LIDODERM) PATCH TD SCH (21:00)
[2023-04-24] MEDS: METOPROLOL TART 25 MG TABLET PO SCH (21:00)
[2023-04-25] VITALS (11 sets, daily range): BP systolic 112–150; BP diastolic 54–100; TEMP 96.1–97.7; O2SAT 92–96
[2023-04-25] MEDS: LEVALBUTEROL 1.25MG 0.5ML CONCENTRATE NEB INH SCH ×4 (02:23→20:13)
[2023-04-25 05:29] LABS: BASO % 0.3 % (0.0-1.0); EOS # 0.3 10^3/uL (0.0-0.5); EOS % 3.3 % (0.0-3.0); HEMATOCRIT 47.1 % (42.0-52.0); HEMOGLOBIN 14.4 g/dl (13.5-17.5); LYMPH # 1.4 10^3/uL (1.5-5.0); LYMPH % 16.2 % (24.0-44.0); MEAN CORPUSCULAR HEMOGLOBIN 28.6 pg (27.0-33.0); MEAN CORPUSCULAR HGB CONC 30.6 g/dl (32.0-36.5); MEAN CORPUSCULAR VOLUME 93.6 fl (80.0-96.0); MONO # 0.9 10^3/uL (0.0-0.8); MONO % 10.6 % (2.0-8.0); NEUTROPHILS # 6.2 10^3/uL (1.5-8.5); NEUTROPHILS % 69.3 % (36.0-66.0); PLATELET COUNT, AUTOMATED 214 10^3/uL (150-450); RED BLOOD COUNT 5.03 10^6/uL (4.30-6.10); WHITE BLOOD COUNT 8.9 10^3/uL (4.0-10.0)
[2023-04-25 05:55] LABS: BLOOD UREA NITROGEN 24 MG/DL (9-23); CALCIUM LEVEL 9.8 MG/DL (8.3-10.6); CARBON DIOXIDE LEVEL 38 MMOL/L (20-31); CHLORIDE LEVEL 96 MMOL/L (98-107); CREATININE FOR GFR 0.53 MG/DL (0.70-1.30); GLOMERULAR FILTRATION RATE > 60.0 (>49); GLUCOSE, FASTING 217 MG/DL (74-106); POTASSIUM SERUM 3.9 MMOL/L (3.5-5.1); SODIUM LEVEL 136 MMOL/L (136-145)
[2023-04-25] MEDS: INSULIN LISPRO (NovoLOG) PER UNIT SC SCH ×7 (07:57→21:37)
[2023-04-25] MEDS ORDERED: FURO40TA2 PO (07:59)
[2023-04-25] MEDS: LEVEMIR (INSULIN DETEMIR) 1 UNITS/0.01ML SC SCH ×2 (07:59→21:37)
[2023-04-25] MEDS ORDERED: METO1TAB87 PO (07:59)
[2023-04-25] MEDS: TIOTROPIUM INHALER/CAPSULE (SPIRIVA) INH SCH (08:07)
[2023-04-25] MEDS: FORMOTEROL FUMARATE 20 MCG/2 ML INHALATION SOLUTION (PERFOROMIST) INH SCH ×2 (08:07→20:13)
[2023-04-25] MEDS: BUDESONIDE 0.5 MG/2 ML INHALATION SUSPENSION INH SCH ×2 (08:07→20:13)
[2023-04-25] MEDS: DOCUSATE SODIUM 100MG CAPSULE PO SCH ×2 (08:52→21:38)
[2023-04-25] MEDS: MAGNESIUM OXIDE 400MG TAB (MAG-OX) PO SCH ×2 (08:52→21:38)
[2023-04-25] MEDS: MIRALAX *UNIT DOSE* 17GM PACKET PO SCH ×2 (08:54→21:38)
[2023-04-25] MEDS: NORCO, ANEXSIA 5/325MG TABLET (HYDROcodone/ACETAMINOPHEN) PO PRN (08:54)
[2023-04-25] MEDS: FUROSEMIDE 40 MG TAB PO SCH (08:56)
[2023-04-25] MEDS: METOPROLOL TART 25 MG TABLET PO SCH ×2 (08:57→21:38)
[2023-04-25] MEDS: LIDOCAINE 5% (LIDODERM) PATCH TOP SCH (08:58)
[2023-04-25] MEDS: metFORMIN (GLUCOPHAGE) 500MG TAB PO SCH ×2 (14:10→21:38)
[2023-04-25] MEDS: RIVAROXABAN 20MG TAB (XARELTO) PO SCH (18:04)
[2023-04-25] MEDS: ATORVASTATIN 20 MG TAB PO SCH (21:38)
[2023-04-26] MEDS: LEVALBUTEROL 1.25MG 0.5ML CONCENTRATE NEB INH SCH ×2 (01:34→07:51)
[2023-04-26] MEDS: NORCO, ANEXSIA 5/325MG TABLET (HYDROcodone/ACETAMINOPHEN) PO PRN ×2 (01:57→10:05)
[2023-04-26 06:03] VITALS: BP 125/76; TEMP 97.1; O2SAT 90
[2023-04-26 06:30] LABS: BASO % 0.3 % (0.0-1.0); EOS # 0.3 10^3/uL (0.0-0.5); EOS % 2.7 % (0.0-3.0); HEMATOCRIT 44.9 % (42.0-52.0); HEMOGLOBIN 14.4 g/dl (13.5-17.5); LYMPH # 1.6 10^3/uL (1.5-5.0); LYMPH % 15.7 % (24.0-44.0); MEAN CORPUSCULAR HEMOGLOBIN 29.3 pg (27.0-33.0); MEAN CORPUSCULAR HGB CONC 32.1 g/dl (32.0-36.5); MEAN CORPUSCULAR VOLUME 91.3 fl (80.0-96.0); MONO # 0.9 10^3/uL (0.0-0.8); MONO % 9.3 % (2.0-8.0); NEUTROPHILS # 7.2 10^3/uL (1.5-8.5); NEUTROPHILS % 71.7 % (36.0-66.0); PLATELET COUNT, AUTOMATED 206 10^3/uL (150-450); RED BLOOD COUNT 4.92 10^6/uL (4.30-6.10)
[2023-04-26 06:41] LABS: BLOOD UREA NITROGEN 22 MG/DL (9-23); CALCIUM LEVEL 9.4 MG/DL (8.3-10.6); CARBON DIOXIDE LEVEL 31 MMOL/L (20-31); CHLORIDE LEVEL 100 MMOL/L (98-107); CREATININE FOR GFR 0.49 MG/DL (0.70-1.30); GLOMERULAR FILTRATION RATE > 60.0 (>49); GLUCOSE, FASTING 199 MG/DL (74-106); POTASSIUM SERUM 4.2 MMOL/L (3.5-5.1); SODIUM LEVEL 139 MMOL/L (136-145)
[2023-04-26 07:30] VITALS: BP 122/76; TEMP 97.2; O2SAT 91
[2023-04-26] MEDS: BUDESONIDE 0.5 MG/2 ML INHALATION SUSPENSION INH SCH (07:51)
[2023-04-26] MEDS: TIOTROPIUM INHALER/CAPSULE (SPIRIVA) INH SCH (07:51)
[2023-04-26] MEDS: FORMOTEROL FUMARATE 20 MCG/2 ML INHALATION SOLUTION (PERFOROMIST) INH SCH (07:51)
[2023-04-26] MEDS ORDERED: INSUDET SC ×2 (08:25→09:25)
[2023-04-26] MEDS ORDERED: INSUHUMDS SC ×3 (08:25→08:45)
[2023-04-26] MEDS: INSULIN LISPRO (NovoLOG) PER UNIT SC SCH ×2 (08:26)
[2023-04-26] MEDS ORDERED: LEVEMIR (INSULIN DETEMIR) 1 UNITS/0.01ML SC SCH ×2 (09:00→21:00)
[2023-04-26] MEDS: DOCUSATE SODIUM 100MG CAPSULE PO SCH (09:57)
[2023-04-26] MEDS: MAGNESIUM OXIDE 400MG TAB (MAG-OX) PO SCH (09:58)
[2023-04-26] MEDS: MIRALAX *UNIT DOSE* 17GM PACKET PO SCH (09:58)
[2023-04-26] MEDS: LIDOCAINE 5% (LIDODERM) PATCH TOP SCH (09:59)
[2023-04-26] MEDS: FUROSEMIDE 40 MG TAB PO SCH (10:01)
[2023-04-26] MEDS: metFORMIN (GLUCOPHAGE) 500MG TAB PO SCH (10:02)
[2023-04-26 10:03] VITALS: BP 122/76
[2023-04-26] MEDS: METOPROLOL TART 25 MG TABLET PO SCH (10:03)
[2023-04-26 10:05] VITALS: BP 122/76; TEMP 97.2; O2SAT 91
[2023-04-26] MEDS ORDERED: INSULIN LISPRO (NovoLOG) PER UNIT SC SCH (12:00)
== END 2023-04-26 12:30 | DRG 981 ==
LOC: M ED 09:05 → M ED INP 12:39 → ENRESERV 13:29 → M ICU 15:30 → M PCU 04-18 09:54 → M MS5PR 04-25 14:45
PROVIDERS: ADMIT Internal Medicine Pulmonary Disease; ATTEND Internal Medicine
PROC: B246ZZZ Ultrasonography of Right and Left Heart (ICD-10-PCS; 2023-04-16)
PROC: 0PSL04Z Reposition Left Ulna with Internal Fixation Device, Open Approach (ICD-10-PCS; principal; 2023-04-19 13:30)
DX: J96.21 Acute and chronic respiratory failure with hypoxia (principal); G93.41 Metabolic encephalopathy; I21.A1 Myocardial infarction type 2; I50.33 Acute on chronic diastolic (congestive) heart failure; J44.1 Chronic obstructive pulmonary disease with (acute) exacerbation; N17.9 Acute kidney failure, unspecified; Z68.41 Body mass index [BMI] 40.0-44.9, adult; E87.1 Hypo-osmolality and hyponatremia; S52.202K Unspecified fracture of shaft of left ulna, subsequent encounter for closed fracture with nonunion; J98.11 Atelectasis; E87.4 Mixed disorder of acid-base balance; J96.22 Acute and chronic respiratory failure with hypercapnia; E87.5 Hyperkalemia; G89.29 Other chronic pain; M51.16 Intervertebral disc disorders with radiculopathy, lumbar region; E66.9 Obesity, unspecified; Z79.4 Long term (current) use of insulin; Z79.01 Long term (current) use of anticoagulants; Z79.899 Other long term (current) drug therapy; Z88.6 Allergy status to analgesic agent; Z88.8 Allergy status to other drugs, medicaments and biological substances; E11.65 Type 2 diabetes mellitus with hyperglycemia; I11.0 Hypertensive heart disease with heart failure; I27.29 Other secondary pulmonary hypertension; I48.0 Paroxysmal atrial fibrillation; Z87.891 Personal history of nicotine dependence; M80.08XD Age-related osteoporosis with current pathological fracture, vertebra(e), subsequent encounter for fracture with routine healing; I25.10 Atherosclerotic heart disease of native coronary artery without angina pectoris

== ENCOUNTER → 2023-05-02 | Outpatient (REF) | payer MEDICARE ==
[~2023-05-02] MED LIST: ADV100INH INH; ALBU6.7H6 INH; APAP325T4 PO; ATOR40TA75 PO; BISA10SU4 PR; DEBR6.5S4 AU; FLEEENE12 PR; FURO40TA2 PO; GLIP10TA PO; GUAI100S51 PO; HUMA100I5 SC; HYDR-3713 PO; INDA25TAB PO; INSUDET SC; INSUHUMDS SC; IPRA0.00 INH; LANTINJ4 SC; LIDO1ADH20 TOP; LIDO1PAD TOP; LISI40TA4 PO; MAGN400T2 PO; METF-839 PO; METO1TAB87 PO; METO50TA7 PO; MILKSUS7 PO; MM S100C PO; NITR0.4S14 SL; SM N0.65; VITA100066 PO; XARE20TA PO
[2023-05-02 07:15] LABS: CHOLESTEROL RISK RATIO 3.65 (<5); HDL CHOLESTEROL 30.4 MG/DL (>40); LDL CHOLESTEROL 57.2 MG/DL (<100); NON-HDL-C 80.6 MG/DL
== END ==
LOC: SKLAB7 14:08
PROVIDERS: ATTEND Internal Medicine
DX: E78.5 Hyperlipidemia, unspecified (principal)

== ENCOUNTER → 2023-05-06 | Outpatient (REF) | payer MEDICARE ==
[2023-05-06 07:17] LABS: HEMATOCRIT 45.7 % (42.0-52.0); HEMOGLOBIN 14.2 g/dl (13.5-17.5); MEAN CORPUSCULAR HEMOGLOBIN 28.3 pg (27.0-33.0); MEAN CORPUSCULAR HGB CONC 31.1 g/dl (32.0-36.5); PLATELET COUNT, AUTOMATED 239 10^3/uL (150-450); RED BLOOD COUNT 5.02 10^6/uL (4.30-6.10); WHITE BLOOD COUNT 9.5 10^3/uL (4.0-10.0)
[2023-05-06 07:41] LABS: ALKALINE PHOSPHATASE 91 U/L (46-116); ALT/SGPT 23 U/L (7.0-40); AST/SGOT 18 U/L (<34); BILIRUBIN,TOTAL 0.6 MG/DL (0.3-1.2); BLOOD UREA NITROGEN 16 MG/DL (9-23); CALCIUM LEVEL 9.6 MG/DL (8.3-10.6); CARBON DIOXIDE LEVEL 36 MMOL/L (20-31); CHLORIDE LEVEL 96 MMOL/L (98-107); CHOLESTEROL LEVEL 121 MG/DL (<200); CHOLESTEROL RISK RATIO 3.84 (<5); CREATININE FOR GFR 0.49 MG/DL (0.70-1.30); GLOMERULAR FILTRATION RATE > 60.0 (>49); GLUCOSE, FASTING 179 MG/DL (74-106); HDL CHOLESTEROL 31.5 MG/DL (>40); LDL CHOLESTEROL 69.7 MG/DL (<100); MAGNESIUM LEVEL 1.4 MG/DL (1.8-2.4); NON-HDL-C 89.5 MG/DL; POTASSIUM SERUM 4.6 MMOL/L (3.5-5.1); SODIUM LEVEL 139 MMOL/L (136-145); TOTAL PROTEIN 6.2 G/DL (5.7-8.2); TRIGLYCERIDES LEVEL 99 MG/DL (<150)
[2023-05-06 07:45] LABS: THYROID STIMULATING HORMONE 1.276 uIU/ML (0.55-4.78)
[2023-05-06 08:45] LABS: HEMOGLOBIN A1c 9.3 % (4.0-6.0)
== END ==
LOC: SKLAB7 07:00
PROVIDERS: ATTEND Internal Medicine
DX: I10 Essential (primary) hypertension (principal); E11.9 Type 2 diabetes mellitus without complications

== ENCOUNTER → 2023-05-10 | Outpatient (CLI) | payer MEDICARE ==
[~2023-05-10] MED LIST changes: -DEBR6.5S4 AU; -HUMA100I5 SC
== END ==
LOC: M SOG 07:57
PROVIDERS: ATTEND Physician Assistant
DX: S52.202A Unspecified fracture of shaft of left ulna, initial encounter for closed fracture (principal); Y93.9 Activity, unspecified; Y92.9 Unspecified place or not applicable

== ENCOUNTER → 2023-06-17 | Outpatient (REF) | payer MEDICARE ==
[~2023-06-17] MED LIST changes: +DEBR6.5S4 AU; +ELIQ5TAB PO; +HUMA100I5 SC; +METO25TA4 PO; +POTA-136 PO; +TORS20TA2 PO
[2023-06-17 09:12] LABS: BLOOD UREA NITROGEN 13 MG/DL (9-23); CALCIUM LEVEL 9.8 MG/DL (8.3-10.6); CARBON DIOXIDE LEVEL 38 MMOL/L (20-31); CHLORIDE LEVEL 95 MMOL/L (98-107); CREATININE FOR GFR 0.51 MG/DL (0.70-1.30); GLOMERULAR FILTRATION RATE > 60.0 (>49); GLUCOSE, FASTING 136 MG/DL (74-106); MAGNESIUM LEVEL 1.6 MG/DL (1.8-2.4); POTASSIUM SERUM 3.9 MMOL/L (3.5-5.1); SODIUM LEVEL 139 MMOL/L (136-145)
== END ==
LOC: SKLAB7 06:47
PROVIDERS: ATTEND Internal Medicine
DX: I50.9 Heart failure, unspecified (principal)

== ENCOUNTER → 2023-06-25 | Outpatient (REF) ==
[2023-06-25 14:07] LABS: BASO % 0.5 % (0.0-1.0); EOS # 0.3 10^3/uL (0.0-0.5); EOS % 3.3 % (0.0-3.0); HEMATOCRIT 50.8 % (42.0-52.0); HEMOGLOBIN 15.9 g/dl (13.5-17.5); LYMPH # 1.3 10^3/uL (1.5-5.0); LYMPH % 14.4 % (24.0-44.0); MEAN CORPUSCULAR HEMOGLOBIN 28.5 pg (27.0-33.0); MEAN CORPUSCULAR HGB CONC 31.3 g/dl (32.0-36.5); MEAN CORPUSCULAR VOLUME 91.2 fl (80.0-96.0); MONO # 0.8 10^3/uL (0.0-0.8); MONO % 9.4 % (2.0-8.0); NEUTROPHILS # 6.3 10^3/uL (1.5-8.5); NEUTROPHILS % 72.1 % (36.0-66.0); PLATELET COUNT, AUTOMATED 272 10^3/uL (150-450); RED BLOOD COUNT 5.57 10^6/uL (4.30-6.10); WHITE BLOOD COUNT 8.7 10^3/uL (4.0-10.0)
[2023-06-25 14:35] LABS: ALBUMIN 3.7 G/DL (3.2-5.2); ALKALINE PHOSPHATASE 131 U/L (46-116); ALT/SGPT 25 U/L (7.0-40); AST/SGOT 17 U/L (<34); BILIRUBIN,TOTAL 0.5 MG/DL (0.3-1.2); BLOOD UREA NITROGEN 19 MG/DL (9-23); CALCIUM LEVEL 9.8 MG/DL (8.3-10.6); CARBON DIOXIDE LEVEL 38 MMOL/L (20-31); CHLORIDE LEVEL 94 MMOL/L (98-107); GLOMERULAR FILTRATION RATE > 60.0 (>49); GLUCOSE, FASTING 185 MG/DL (74-106); POTASSIUM SERUM 3.6 MMOL/L (3.5-5.1); SODIUM LEVEL 138 MMOL/L (136-145); TOTAL PROTEIN 7.1 G/DL (5.7-8.2)
== END ==
LOC: SKLAB7 12:01
PROVIDERS: ATTEND Internal Medicine
DX: I50.9 Heart failure, unspecified (principal); R06.02 Shortness of breath

== ENCOUNTER → 2023-06-26 | Outpatient (REF) | LOC: SKLAB7 13:03 | PROVIDERS: ATTEND Internal Medicine | DX: M19.072 Primary osteoarthritis, left ankle and foot (principal); M79.89 Other specified soft tissue disorders ==

== ENCOUNTER → 2023-07-02 | Outpatient (CLI) | payer MEDICARE | LOC: M RAD 12:02 | PROVIDERS: ATTEND Internal Medicine | DX: M19.012 Primary osteoarthritis, left shoulder (principal); M25.512 Pain in left shoulder ==

== ENCOUNTER → 2023-07-02 | Outpatient (REF) | LOC: SKLAB7 11:40 | PROVIDERS: ATTEND Internal Medicine | DX: M25.512 Pain in left shoulder (principal); Z53.8 Procedure and treatment not carried out for other reasons ==

== ENCOUNTER → 2023-07-16 | Outpatient (REF) | payer MEDICARE ==
[2023-07-16 13:22] LABS: BASO # 0.1 10^3/uL (0.0-0.2); BASO % 0.5 % (0.0-1.0); EOS # 0.4 10^3/uL (0.0-0.5); EOS % 4.3 % (0.0-3.0); HEMATOCRIT 51.1 % (42.0-52.0); LYMPH # 1.5 10^3/uL (1.5-5.0); LYMPH % 14.7 % (24.0-44.0); MEAN CORPUSCULAR HEMOGLOBIN 28.2 pg (27.0-33.0); MEAN CORPUSCULAR HGB CONC 31.3 g/dl (32.0-36.5); MONO # 1.1 10^3/uL (0.0-0.8); MONO % 10.7 % (2.0-8.0); NEUTROPHILS # 7.1 10^3/uL (1.5-8.5); NEUTROPHILS % 69.6 % (36.0-66.0); PLATELET COUNT, AUTOMATED 268 10^3/uL (150-450); RED BLOOD COUNT 5.68 10^6/uL (4.30-6.10); WHITE BLOOD COUNT 10.2 10^3/uL (4.0-10.0)
[2023-07-16 13:55] LABS: ALBUMIN 3.7 G/DL (3.2-5.2); ALKALINE PHOSPHATASE 133 U/L (46-116); ALT/SGPT 22 U/L (7.0-40); AST/SGOT 28 U/L (<34); BILIRUBIN,TOTAL 0.7 MG/DL (0.3-1.2); BLOOD UREA NITROGEN 19 MG/DL (9-23); CALCIUM LEVEL 9.8 MG/DL (8.3-10.6); CARBON DIOXIDE LEVEL 34 MMOL/L (20-31); CHLORIDE LEVEL 95 MMOL/L (98-107); GLOMERULAR FILTRATION RATE > 60.0 (>49); GLUCOSE, FASTING 90 MG/DL (74-106); POTASSIUM SERUM 4.7 MMOL/L (3.5-5.1); SODIUM LEVEL 137 MMOL/L (136-145); TOTAL PROTEIN 7.3 G/DL (5.7-8.2)
[2023-07-16 14:11] LABS: TOTAL 25(OH) VITAMIN D 44.4 NG/ML (20.0-100.0)
[2023-07-16 14:52] LABS: IMMUNOGLOBULIN A 333.5 MG/DL (40-350)
== END ==
LOC: SKLAB7 12:15
PROVIDERS: ATTEND Internal Medicine
DX: M54.9 Dorsalgia, unspecified (principal); C90.00 Multiple myeloma not having achieved remission; Z79.899 Other long term (current) drug therapy

== ENCOUNTER → 2023-07-22 | Outpatient (CLI) | payer MEDICARE | LOC: M RAD 08:18 | PROVIDERS: ATTEND Nurse Practitioner Family | DX: S32.302A Unspecified fracture of left ilium, initial encounter for closed fracture (principal); S32.010A Wedge compression fracture of first lumbar vertebra, initial encounter for closed fracture; Y92.9 Unspecified place or not applicable; Y93.9 Activity, unspecified ==

== ENCOUNTER → 2023-07-23 | Outpatient (CLI) | payer MEDICARE | LOC: M RAD 14:24 | PROVIDERS: ATTEND Nurse Practitioner Family | DX: S32.301A Unspecified fracture of right ilium, initial encounter for closed fracture (principal); S32.302A Unspecified fracture of left ilium, initial encounter for closed fracture; Y93.9 Activity, unspecified; Y92.9 Unspecified place or not applicable ==

== ENCOUNTER → 2023-07-24 | Outpatient (REF) | payer MEDICARE | LOC: SKLAB7 07:12 | PROVIDERS: ATTEND Internal Medicine | DX: M54.9 Dorsalgia, unspecified (principal); Z12.5 Encounter for screening for malignant neoplasm of prostate | CPT/HCPCS: 36415; 84166; G0103 ==

== ENCOUNTER → 2023-07-31 | Outpatient (CLI) | payer MEDICARE | LOC: M RAD 10:00 | PROVIDERS: ATTEND Internal Medicine | DX: R10.2 Pelvic and perineal pain (principal) ==

== ENCOUNTER → 2023-07-31 | Outpatient (REF) | payer MEDICARE | LOC: SKLAB7 06:57 | PROVIDERS: ATTEND Internal Medicine | DX: Z53.8 Procedure and treatment not carried out for other reasons (principal) ==

== ENCOUNTER → 2023-08-17 | Outpatient (REF) | payer MEDICARE | LOC: SKLAB7 09:34 | PROVIDERS: ATTEND Internal Medicine | DX: Z79.899 Other long term (current) drug therapy (principal); Z53.8 Procedure and treatment not carried out for other reasons ==

== ENCOUNTER → 2023-08-29 | Outpatient (REF) | payer MEDICARE, MEDICAID | LOC: SKLAB7 11:10 | PROVIDERS: ATTEND Internal Medicine | DX: Z53.8 Procedure and treatment not carried out for other reasons (principal) ==

== ENCOUNTER → 2023-08-30 | Outpatient (CLI) | payer MEDICARE, MEDICAID | LOC: M RAD 11:04 | PROVIDERS: ATTEND Internal Medicine | DX: R10.2 Pelvic and perineal pain (principal) ==

== ENCOUNTER → 2023-09-06 | Outpatient (REF) | payer MEDICARE, MEDICAID ==
[2023-09-06 08:48] LABS: HEMOGLOBIN A1c 7.3 % (4.0-6.0)
== END ==
LOC: SKLAB7 09-05 09:24
PROVIDERS: ATTEND Internal Medicine
DX: I10 Essential (primary) hypertension (principal); Z79.899 Other long term (current) drug therapy

== ENCOUNTER → 2023-10-23 | Outpatient (REF) | payer MEDICARE, MEDICAID ==
[~2023-10-23] MED LIST changes: +INDA2.5T2 PO; -INDA25TAB PO
[2023-10-23 07:27] LABS: HEMATOCRIT 49.2 % (42.0-52.0); HEMOGLOBIN 15.3 g/dl (13.5-17.5); MEAN CORPUSCULAR HEMOGLOBIN 28.3 pg (27.0-33.0); MEAN CORPUSCULAR HGB CONC 31.1 g/dl (32.0-36.5); MEAN CORPUSCULAR VOLUME 91.1 fl (80.0-96.0); PLATELET COUNT, AUTOMATED 198 10^3/uL (150-450)
[2023-10-23 07:41] LABS: ALKALINE PHOSPHATASE 99 U/L (46-116); ALT/SGPT 25 U/L (7.0-40); AST/SGOT 24 U/L (<34); BILIRUBIN,TOTAL 0.5 MG/DL (0.3-1.2); BLOOD UREA NITROGEN 34 MG/DL (9-23); CALCIUM LEVEL 8.7 MG/DL (8.3-10.6); CARBON DIOXIDE LEVEL 37 MMOL/L (20-31); CHLORIDE LEVEL 99 MMOL/L (98-107); CREATININE FOR GFR 0.74 MG/DL (0.70-1.30); GLOMERULAR FILTRATION RATE > 60.0 (>49); GLUCOSE, FASTING 172 MG/DL (74-106); POTASSIUM SERUM 4.3 MMOL/L (3.5-5.1); SODIUM LEVEL 139 MMOL/L (136-145); TOTAL PROTEIN 6.4 G/DL (5.7-8.2)
== END ==
LOC: SKLAB7 07:00
PROVIDERS: ATTEND Internal Medicine
DX: I10 Essential (primary) hypertension (principal)

== ENCOUNTER → 2023-10-29 | Outpatient (REF) | payer MEDICARE, MEDICAID | LOC: SKLAB7 09:43 | PROVIDERS: ATTEND Internal Medicine | DX: Z53.8 Procedure and treatment not carried out for other reasons (principal) ==